=== PATIENT | female | born 1930 | race Caucasian/White ===

== ENCOUNTER → 2017-10-16 | Outpatient (CLI) | payer MEDICARE, BC ==
[~2017-10-16] MED LIST: CARV6.25 PO; CENTRUM SILVER1 EAC2 PO; CYAN1000 PO; DILT180 PO; DILT300 PO; DILTIAZEM ER300 MG PO; FURO40 PO; FURO80 PO; Hair, Skin & N1 EACH; LOW DOSE ASPIRI81 MG; Micro-K10 MEQ PO; POTCHL10ER PO; SODCHL.65S; SPIR25 PO; VITAMIN B122500 MCG PO; WARF3 PO
[2017-10-16 18:08] LABS: BASOPHILS ABSOLUTE AUTO 0.02 K/mm3 (0.00-0.23); BASOPHILS PERCENT AUTO 0 % (0-2); EOSINOPHILS ABSOLUTE AUTO 0.17 K/mm3 (0.00-0.68); EOSINOPHILS PERCENT AUTO 3 % (0-6); Hematocrit 35.2 % (33.0-51.0); Hemoglobin 12.1 g/dL (11.5-16.0); IMMATURE GRAN ABSOLUTE AUTO 0.02 K/mm3 (0.00-0.10); IMMATURE GRAN PERCENT AUTO 0 % (0-1); LYMPHOCYTES ABSOLUTE AUTO 0.92 K/mm3 (0.84-5.20); LYMPHOCYTES PERCENT AUTO 15 % (21-46); MONOCYTES ABSOLUTE AUTO 0.39 K/mm3 (0.16-1.47); MONOCYTES PERCENT AUTO 7 % (4-13); Mean Corpuscular HGB 34.3 pg (26.0-34.0); Mean Corpuscular HGB Conc 34.4 g/dL (31.5-36.5); Mean Corpuscular Volume 100 fL (80-100); Mean Platelet Volume 11.2 fL (9.1-12.4); NEUTROPHILS PERCENT AUTO 75 % (41-73); Platelet Count 219 K/mm3 (150-400); RDW Standard Deviation 52.6 fL (35.1-46.3); Red Blood Cell Count 3.53 M/mm3 (3.80-5.20); White Blood Cell Count 6.02 K/mm3 (4.00-11.30)
[2017-10-16 19:20] LABS: Albumin, Blood 3.5 g/dL (3.4-5.0); Albumin/Globulin Ratio 0.9 (0.8-1.8); Bilirubin, Total 0.7 mg/dL (0.1-1.0); Bun/Creatinine Ratio 20.9 (12.0-20.0); Calcium, Blood 9.3 mg/dL (8.5-10.1); Creatinine, Blood 1.48 mg/dL (0.40-1.00); Globulin, Blood 3.7 g/dL (2.2-4.0); Potassium, Blood 3.8 mmol/L (3.5-5.5); Total Protein, Blood 7.2 g/dL (6.4-8.2)
[2017-10-16 19:27] LABS: Thyroid Stimulating Hormone 2.69 uIU/mL (0.360-4.800)
== END | disposition home or self-care (01) ==
LOC: LAB 15:24
PROVIDERS: Nurse Practitioner Adult Health
DX: R19.7 Diarrhea, unspecified (principal)
CPT/HCPCS: 80053; 82150; 84443; 85025

== ENCOUNTER → 2017-10-18 | Outpatient (CLI) | payer MEDICARE, BC | END | disposition home or self-care (01) | LOC: LAB UCHC 16:00 | DX: R19.7 Diarrhea, unspecified (principal) | CPT/HCPCS: 87493 ==

== ENCOUNTER → 2017-10-18 | Outpatient (CLI) | payer MEDICARE, BC | END | disposition home or self-care (01) | LOC: LAB 15:00 | DX: R19.7 Diarrhea, unspecified (principal) | CPT/HCPCS: 87177; 87209 ==

== ENCOUNTER → 2018-12-04 | Outpatient (CLI) | payer MEDICARE, BC | END | disposition home or self-care (01) | LOC: PLD 08:24 → LAB SHORT 08:24 | DX: D04.61 Carcinoma in situ of skin of right upper limb, including shoulder (principal); D48.5 Neoplasm of uncertain behavior of skin | CPT/HCPCS: 88305 ==

== ENCOUNTER 2019-02-21 10:14 | Day surgery (SDC) | payer MEDICARE, BC ==
[~2019-02-21] VITALS: Ht 157.5 cm; Wt 45.0 kg
[~2019-02-21 10:14] MED LIST changes: +ACET325 PO; +LOSA25 PO
[2019-02-21 11:35] LABS: International Normalized Ratio 1.02; Prothrombin Time Results 10.8 Sec (9.7-11.5)
[2019-02-21 11:53] LABS: Bun/Creatinine Ratio 26.2 (12.0-20.0); Calcium, Blood 9.2 mg/dL (8.5-10.1); Creatinine, Blood 2.1 mg/dL (0.40-1.00); Potassium, Blood 4.2 mmol/L (3.5-5.5)
[2019-02-21 12:09] LABS: BASOPHILS ABSOLUTE AUTO 0.04 K/mm3 (0.00-0.23); BASOPHILS PERCENT AUTO 1 % (0-2); EOSINOPHILS ABSOLUTE AUTO 0.17 K/mm3 (0.00-0.68); EOSINOPHILS PERCENT AUTO 3 % (0-6); Hematocrit 32.6 % (33.0-51.0); Hemoglobin 11.1 g/dL (11.5-16.0); IMMATURE GRAN ABSOLUTE AUTO 0.02 K/mm3 (0.00-0.10); IMMATURE GRAN PERCENT AUTO 0 % (0-1); LYMPHOCYTES ABSOLUTE AUTO 0.61 K/mm3 (0.84-5.20); LYMPHOCYTES PERCENT AUTO 9 % (21-46); MONOCYTES ABSOLUTE AUTO 0.52 K/mm3 (0.16-1.47); MONOCYTES PERCENT AUTO 8 % (4-13); Mean Corpuscular HGB 33.5 pg (26.0-34.0); Mean Corpuscular Volume 99 fL (80-100); Mean Platelet Volume 10.6 fL (9.1-12.4); NEUTROPHILS ABSOLUTE AUTO 5.57 K/mm3 (1.96-9.15); NEUTROPHILS PERCENT AUTO 80 % (41-73); Platelet Count 210 K/mm3 (150-400); RDW Coefficient Variation 13.5 % (11.7-14.2); RDW Standard Deviation 47.7 fL (35.1-46.3); Red Blood Cell Count 3.31 M/mm3 (3.80-5.20); White Blood Cell Count 6.93 K/mm3 (4.00-11.30)
--- NOTE | 2019-02-21 16:52 | NUR ---
B/P / MD NOTIFIED. HYDRALIZINE 10MG IVP GIVEN PER DR GALE.
--- NOTE | 2019-02-21 18:03 | NUR ---
PT ABLE TO STAND AT BEDSIDE. -BLEEDING OR SWELLING L GROIN AREA.
--- NOTE | 2019-02-21 18:17 | NUR ---
PT AND CAREGIVER VERBALIZED UNDERSTANDING OF WRITTEN AND VERBAL D/C INST. IV REMOVED. -BLEEDING OR SWELLING L GROIN.
--- NOTE | 2019-02-21 18:44 | NUR ---
PT LEFT HRT CENTER VIA W/C.
--- NOTE | 2019-02-22 09:10 | NUR ---
AT 1450 ON 02/21/19 THIS RN CALLED PT'S CAREGIVER TO ARRANGE FOR CAREGIVER TO SPEND THE NIGHT WITH PT POST PVI. CAREGIVER'S NAME IS FLORY, AND SHE CONFIRMED SHE WOULD SPEND THE NIGHT WITH THE PT UPON DISCHARGE. FLORY WAS ADDITIONALLY, CALLED DURING CASE TO EVALUATE IF SHE COULD SPEND THE NIGHT WITH PT AND SHE CONFIRMED SHE COULD.
== END 2019-02-21 18:45 | disposition home or self-care (01) ==
LOC: MHTC 10:14 → PCU 16:38 → MHTC 18:45
PROVIDERS: Radiology Diagnostic Radiology
DX: I77.9 Disorder of arteries and arterioles, unspecified (principal); I11.0 Hypertensive heart disease with heart failure; I50.9 Heart failure, unspecified; D64.9 Anemia, unspecified; Z88.1 Allergy status to other antibiotic agents; Z88.8 Allergy status to other drugs, medicaments and biological substances; Z79.899 Other long term (current) drug therapy; Z79.82 Long term (current) use of aspirin
CPT/HCPCS: 36415; 80048; 85025; 85610; 99152; 99153; C1714; C1725; C1760; C1769; C1884; C1887; C1894; C2623; J0360; J1644; J2250; J3010; J7030; Q9967

== ENCOUNTER → 2019-02-23 | Outpatient (CLI) | payer MEDICARE, BC ==
[2019-02-23 17:29] LABS: Creatinine, Urine Random 75.3 mg/dL (27.00-270.00)
== END | disposition home or self-care (01) ==
LOC: LAB SHORT 16:41 → LAB 16:41
PROVIDERS: Internal Medicine
DX: N18.4 Chronic kidney disease, stage 4 (severe) (principal)
CPT/HCPCS: 82570; 84156

== ENCOUNTER 2019-04-12 09:54 | Inpatient (IN) | payer MEDICARE, BC ==
[~2019-04-12] VITALS: Ht 149.9 cm; Wt 43.3 kg
[~2019-04-12 09:54] MED LIST changes: -LOW DOSE ASPIRI81 MG; +LOW DOSE ASPIRI81 MG PO; +TRAM50 PO
[2019-04-12] MEDS ORDERED: B Complex #11 EACH PO (10:11)
[2019-04-12] MEDS ORDERED: TRAM50 PO (10:45)
[2019-04-12] MEDS ORDERED: FURO40 PO (10:45)
[2019-04-12 10:47] LABS: Albumin, Blood 3.2 g/dL (3.4-5.0); Albumin/Globulin Ratio 0.9 (0.8-1.8); Bilirubin, Total 0.7 mg/dL (0.1-1.0); Calcium, Blood 8.6 mg/dL (8.5-10.1); Creatinine, Blood 3.15 mg/dL (0.40-1.00); Globulin, Blood 3.5 g/dL (2.2-4.0); Potassium, Blood 4.4 mmol/L (3.5-5.5); Total Protein, Blood 6.7 g/dL (6.4-8.2)
[2019-04-12 11:10] LABS: BASOPHILS ABSOLUTE AUTO 0.03 K/mm3 (0.00-0.23); BASOPHILS PERCENT AUTO 0 % (0-2); EOSINOPHILS ABSOLUTE AUTO 0.21 K/mm3 (0.00-0.68); EOSINOPHILS PERCENT AUTO 2 % (0-6); Hematocrit 25.1 % (33.0-51.0); IMMATURE GRAN ABSOLUTE AUTO 0.06 K/mm3 (0.00-0.10); IMMATURE GRAN PERCENT AUTO 1 % (0-1); LYMPHOCYTES ABSOLUTE AUTO 0.56 K/mm3 (0.84-5.20); LYMPHOCYTES PERCENT AUTO 5 % (21-46); MONOCYTES ABSOLUTE AUTO 0.83 K/mm3 (0.16-1.47); MONOCYTES PERCENT AUTO 7 % (4-13); Mean Corpuscular HGB 36.7 pg (26.0-34.0); Mean Corpuscular HGB Conc 35.9 g/dL (31.5-36.5); Mean Corpuscular Volume 102 fL (80-100); Mean Platelet Volume 10.9 fL (9.1-12.4); NEUTROPHILS ABSOLUTE AUTO 9.64 K/mm3 (1.96-9.15); NEUTROPHILS PERCENT AUTO 85 % (41-73); Platelet Count 189 K/mm3 (150-400); RDW Coefficient Variation 16.2 % (11.7-14.2); RDW Standard Deviation 52.4 fL (35.1-46.3); Red Blood Cell Count 2.45 M/mm3 (3.80-5.20); White Blood Cell Count 11.33 K/mm3 (4.00-11.30)
[2019-04-12 11:15] LABS: International Normalized Ratio 1.01; Prothrombin Time Results 10.7 Sec (9.7-11.5)
--- NOTE | 2019-04-12 13:30 | NUR ---
PT ARRIVED TO PCU 14 VIA GURNEY FROM ED. PT IS A/OX3, PLEASANT AND COOPERATIVE WITH CARE, FOLLOWS COMMANDS WELL, DENIES PAIN, LUNGS ARE CLEAR T/O, DIM IN BASES, RESP EVEN AND UNLABORED, NO COUGH NOTED, HRR, TELE IN PLACE RUNNING SR PER MONITOR, SEE STRIP, NO EDEMA NOTED, PPP FOUND VIA DOPPLER TO RIGHT FOOT, UNABLE TO FIND LEFT, TRACE EDEMA NOTED, IV SITE IS CLEAR AND PATENT, BTX4, ABD FLAT SOFT NONTENDER, VOIDS WITHOUT DIFF, SKIN HAS AN ANGIO SITE TO RIGHT INGUINAL AREA WITH HARD BRUISING NOTED ALL AROUND SITE, DOWN INTO GROIN. DRESSING IN PLACE TO ANGIO SITE, ABHAY KIRK, CALL LIGHT IN REACH. ORIENTED TO ROOM LAYOUT CALL SYSTEM.
--- NOTE | 2019-04-12 17:57 | NUR ---
BLADDER SCAN POST VOID IS 105
--- NOTE | 2019-04-12 18:04 | NUR ---
PT ABLE TO STAND AND TRANSFER TO BSC WITH ONE PERSON ASSIST, VOIDED [address] JAVIER WAS CONSULTED AND NEW ORDERES WERE PLACED. WILL KEEP NPO AFTER MIDNIGHT FOR AM RENAL U/S. NO FURTHER CHANGES, CALL LIGHT IN REACH.
[2019-04-12 18:23] LABS: Hemoglobin 8.5 g/dL (11.5-16.0)
[2019-04-12 18:30] LABS: Hematocrit 22.4 % (33.0-51.0)
--- NOTE | 2019-04-12 20:00 | NUR ---
ASSUMED CARE PT RESTING IN ROOM COMFORTABLY AT THIS TIME. PER DAY SHIFT PT HAS HAD NO ACUTE CHANGES IN STATUS. HEMATOMA INSPECTED ON PT R GROIN/ABD. SOME DISCOLORATION NOTED TO AREA, PURPLE COLOR STARTING TO APPEAR ON SKIN. PT SLIGHTLY TENDER TO PALP. DENIES ANY OTHER PAIN W/ MOVEMENT. PT REPORTS HAVING "FULL BELLY LIKE I NEED TO HAVE A BOWEL MOVEMENT". PT HAS BEEN A 1 PERS ASSIST TO BSC, PT IS VERY WEAK ON OWN FEET. RESP EVEN UNLABORED ON RA W/ SATS >92% ON RA. DENIES CP, OR SOB. CALL LIGHT IS IN REACH.
[2019-04-13 05:15] LABS: Albumin, Blood 2.9 g/dL (3.4-5.0); Anion Gap 10 mmol/L (6-16); Blood Urea Nitrogen 58 mg/dL (8-24); Bun/Creatinine Ratio 19.5 (12.0-20.0); CO2, Blood 21 mmol/L (21-32); CPK Creatine Kinase 60 U/L (26-193); Chloride, Blood 101 mmol/L (98-108); Creatinine, Blood 2.98 mg/dL (0.40-1.00); Glomerular Filtration Rate 16 (60-); Glucose, Blood 100 mg/dL (70-99); Magnesium, Blood 2.2 mg/dL (1.6-2.4); Phosphorus, Blood 4.6 mg/dL (2.5-4.9); Potassium, Blood 4.3 mmol/L (3.5-5.5); Sodium, Blood 132 mmol/L (136-145); Uric Acid, Blood 9.7 mg/dL (2.6-6.0)
[2019-04-13 05:20] LABS: BASOPHILS ABSOLUTE AUTO 0.03 K/mm3 (0.00-0.23); BASOPHILS PERCENT AUTO 0 % (0-2); EOSINOPHILS ABSOLUTE AUTO 0.03 K/mm3 (0.00-0.68); EOSINOPHILS PERCENT AUTO 0 % (0-6); Hematocrit 23.6 % (33.0-51.0); IMMATURE GRAN ABSOLUTE AUTO 0.08 K/mm3 (0.00-0.10); IMMATURE GRAN PERCENT AUTO 1 % (0-1); LYMPHOCYTES ABSOLUTE AUTO 0.66 K/mm3 (0.84-5.20); LYMPHOCYTES PERCENT AUTO 5 % (21-46); MONOCYTES ABSOLUTE AUTO 1.24 K/mm3 (0.16-1.47); MONOCYTES PERCENT AUTO 9 % (4-13); Mean Corpuscular HGB Conc 33.9 g/dL (31.5-36.5); Mean Corpuscular Volume 100 fL (80-100); Mean Platelet Volume 10.9 fL (9.1-12.4); NEUTROPHILS ABSOLUTE AUTO 11.22 K/mm3 (1.96-9.15); NEUTROPHILS PERCENT AUTO 85 % (41-73); Platelet Count 199 K/mm3 (150-400); RDW Coefficient Variation 15.1 % (11.7-14.2); RDW Standard Deviation 52.1 fL (35.1-46.3); Red Blood Cell Count 2.35 M/mm3 (3.80-5.20); White Blood Cell Count 13.26 K/mm3 (4.00-11.30)
--- NOTE | 2019-04-13 06:34 | NUR ---
SHIFT SUMMARY PT SLEEPING IN ROOM COMFORTABLY AT THIS TIME. PT HAD NO ACUTE CHANGES IN STATUS T/O NIGHT. PT SLEPT WELL AND GOT UP TO BSC ONCE T/O NIGHT W/ 2 PERSON ASSIST. RESP EVEN UNLABORED ON RA W/ SATS >92%. PT HAS NS INFUSING IN PIV AT THIS TIME AT 75ML/HR. BRUISING TO R GROIN/ABD STARRTING TOP TURN PURPLE IN COLOR. PT REPORTS PAIN ONLY W/ MOVEMENT AND PALP. DENIED OTHER NEEDS T/O NIGHT. CALL LIGHT IN REACH. PT CALLS APPROPRIATEY
--- NOTE | 2019-04-13 07:15 | NUR ---
RECVD REPORT FROM PREVIOUS SHIFT KAYCEE OTERO. PT SLEEPING IN BED, CALL LIGHT WITHIN REACH, BED RAILS UP X 2, BED IN LOWEST POSITION.
--- NOTE | 2019-04-13 07:53 | NUR ---
PT BECAME SOB WITH ROLLING ONTO/OFF THE BED PAIN, SPO2 AT LOW 83% LUNGS DIMINISHED BUT ONLY SLIGHTLY COARSE. RT IN WITH PT CURRENTLY.
--- NOTE | 2019-04-13 07:56 | NUR ---
DR ALFONSO TO ROUND ON PT
--- NOTE | 2019-04-13 08:00 | NUR ---
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 dr luis notified and discussed with pt treatment plan. pt agrees to completed renal ultrasound, possibly will agree to receive hoyt catheter if necessary
[2019-04-13 12:12] LABS: Hematocrit 21.2 % (33.0-51.0); Hemoglobin 7.8 g/dL (11.5-16.0)
--- NOTE | 2019-04-13 18:19 | NUR ---
shift summary: vss, no acute changes. pt remainted a/0 x 4, pleasant/cooperative. pt reports she feels "weak as a kitten", one assist moderate to commode. 24 hr urine in progress. pt tolerated PO intake, no n/v. pt denies pain, states she is sore where the hematoma is. bruising developing r flank, r groin, r inner thigh. unable to complete renal ultrasound study, see imaging note. provider notified and received orders for PRN bladder scans.
--- NOTE | 2019-04-13 20:00 | NUR ---
ASSUMED CARE PT SLEEPING IN ROOM COMFORTABLY. REPORT TAKERN FROM DAY SHIFT RN, NO ACUTE CHANGES IN STATUS T/O DAY. PT HGB CONTINUES TO DROP SLIGHTLY. HGB REDRAW OCCURING SOON. WILL CALL PROVIDER WITH RESULTS IF LEVEL CONTINUES TO DROP. RESP EVEN UNLABORED ON RA W/ SATS >95%. DENIES OTHER NEEDS AT THIS TIME. PT LETHARGIC. CALL LIGHT IN REACH.
[2019-04-13 20:15] LABS: Hematocrit 19.2 % (33.0-51.0); Hemoglobin 7.1 g/dL (11.5-16.0)
--- NOTE | 2019-04-13 21:40 | NUR ---
PROVIDER CALLED D/T PT LOW HGB LEVEL PROVIDER WAS CALLED AND UPDATED ON PT CONDITION. PROVIDER ORDERED 2 UNITS PRBC'S AT THIS TIME FOR HGB OF 7.1, AND CONTINUED DOWNWARD TREND. PT STATUS REMAINS STABLE AT THIS TIME, NO INCREASED ABD DISTENTION, BRUISING HAS NOT CHANGED EXPECT TO DARKEN IN COLOR. PT HAS NO BLACK STOOL. BLOOD CONSENT SIGNED AT THIS TIME AND PT EDUCATED ABOUT PROCEDURE. WILL MONITOR.
--- NOTE | 2019-04-14 06:12 | NUR ---
SHIFT SUMMARY PT SLEEPING IN ROOM COMFORTABLY AT THIS TIME. PT RECEIVED 2 UNITS OF PRBC'S T/O NIGHT TO RAISE HGB LEVEL FROM 7.1. PT TOLERATED WELL. PT WAS EDUCATED ABOUT TRANSFUSION, AND ASKED SEVERAL QUESTIONS. PT DID BECOME ANXIOUS ABOUT TRANSFUSION, BUT HAD NO REACTIONS, AND LS REMAINED CLEAR T/O. PT REPORT THERE WAS NO PAIN TO IV SITE "IT JUST MAKES ME NERVOUS". PT AGAIN EDUCATED ABOUT LOW HGB LEVEL AND NEED TO RAISE LEVEL, AND THAT THE TRANSFUSION IS MONTIORED VERY CLOSELY. RESP EVEN UNLBAORED ON RA W/ SATS >95%. DENIES PAIN. BRUISING TO R GROIN DARKENING IN COLOR. BRUISE WRAPS AROUND TO FLANK, AND IS TENDER TO PALP. NS INFUSING IN PIV AT 75ML/HR. CALL LIGHT IN REACH.
[2019-04-14 06:29] LABS: Albumin, Blood 2.8 g/dL (3.4-5.0); Anion Gap 11 mmol/L (6-16); Blood Urea Nitrogen 49 mg/dL (8-24); Bun/Creatinine Ratio 20.7 (12.0-20.0); CO2, Blood 20 mmol/L (21-32); Calcium, Blood 8.1 mg/dL (8.5-10.1); Chloride, Blood 104 mmol/L (98-108); Creatinine, Blood 2.37 mg/dL (0.40-1.00); Glomerular Filtration Rate 20 (60-); Glucose, Blood 100 mg/dL (70-99); Phosphorus, Blood 3.5 mg/dL (2.5-4.9); Potassium, Blood 4.2 mmol/L (3.5-5.5); Sodium, Blood 135 mmol/L (136-145)
[2019-04-14 06:39] LABS: BASOPHILS ABSOLUTE AUTO 0.03 K/mm3 (0.00-0.23); BASOPHILS PERCENT AUTO 0 % (0-2); EOSINOPHILS ABSOLUTE AUTO 0.06 K/mm3 (0.00-0.68); EOSINOPHILS PERCENT AUTO 1 % (0-6); Hematocrit 28.9 % (33.0-51.0); Hemoglobin 10.2 g/dL (11.5-16.0); IMMATURE GRAN PERCENT AUTO 1 % (0-1); LYMPHOCYTES ABSOLUTE AUTO 0.67 K/mm3 (0.84-5.20); LYMPHOCYTES PERCENT AUTO 6 % (21-46); MONOCYTES ABSOLUTE AUTO 0.87 K/mm3 (0.16-1.47); MONOCYTES PERCENT AUTO 8 % (4-13); Mean Corpuscular HGB 34.7 pg (26.0-34.0); Mean Corpuscular Volume 98 fL (80-100); Mean Platelet Volume 10.3 fL (9.1-12.4); NEUTROPHILS ABSOLUTE AUTO 9.36 K/mm3 (1.96-9.15); NEUTROPHILS PERCENT AUTO 85 % (41-73); Platelet Count 141 K/mm3 (150-400); RDW Coefficient Variation 14.9 % (11.7-14.2); RDW Standard Deviation 51.4 fL (35.1-46.3); Red Blood Cell Count 2.94 M/mm3 (3.80-5.20); White Blood Cell Count 11.09 K/mm3 (4.00-11.30)
[2019-04-14 06:43] LABS: Mean Corpuscular HGB Conc 35.3 g/dL (31.5-36.5)
--- NOTE | 2019-04-14 19:44 | NUR ---
SUMMARY- PT A/O- AMBULATES TO [facility] [place] [facility], SLIGHT WEAKNESS AND UNSTEADY GAIT. R GROIN HEMATOMA, MARKED WITH SHARPIE, TENDER AT SITE, NO ACTIVE OOZING. HEMATOMA DID NOT GROW OUTSIDE MARKED LINES. PT TOLERATING FOOD AND FLUIDS. VSS. REPORT GIVEN TO CRISTINA BENOIT.
--- NOTE | 2019-04-14 20:00 | NUR ---
ASSUMED CARE PT RESTING COMFORTABLY IN ROOM. PER DAY SHIFT NO ACUTE CHANGES IN STATUS. PT WAS ABLE TO HAVE A BED BATH TODAY AND PT REPORTS "FEELING MUCH BETTER". RESP EVEN UNLBAORED ON RA W/ SATS >92%. DENIES PAIN, UNLESS GROIN SITE IS PALPATED. PT EDUCATED ABOUT HIGH BLOOD PRESSURE. PT REFUSING PRN MEDS FOR LOWERING BP, PT REPORTS "THATS NOT TOO HIGH FOR ME. I'LL TAKE A NAP AND WE CAN RECHECK AT THE NEXT SET". PT EDUCATED AB OUT RISKS OF HIGH BP. PT CONTINUES TO REFUSE MEDICATION UNTIL NEXT VITAL SIGN CHECK AT MIDNIGHT. PT APPEARS TO BE COMFORTABLE AND FREE OF PAIN AT THIS TIME. CALL LIGHT IS IN REACH.
--- NOTE | 2019-04-14 23:41 | NUR ---
HIGH BP MEDICATED PT VITAL SIGNS RECHECKED AT THIS TIME. SBP AT 202, PT CONSENTED TO HYDRALAZINE AT THIS TIME TO REDUCED BP. MED GIVEN WILL MONITOR.
--- NOTE | 2019-04-15 06:50 | NUR ---
SHIFT SUMMARY PT RESTING IN ROOM COMFORTABLY AT THIS TIME. PT HAD NO ACUTE CHANGES IN STATUS T/O NIGHT. PT DID HAVE AN EPISODE OF IRRITABILTY WITH STAFF. PT WAS FRUSTRATED WITH BEING WOKEN UP FOR VITAL SIGNS DURING THE NIGHT. PT STATED "IT'S JUST AWFUL THAT YOU WAKE ME UP! IT'S LIEK I'M IN SHELTER! LEAVE ME ALONE!". ATTEMPTED EDUCATION ABOUT WHY PT WAS BEING WOKEN UP FOR VITAL SIGNS, D/T PT HAVING HIGH BLOOD PRESSURE DURING THE NIGHT. PT CONTINUES TO YELL AT THIS RN "LEAVE ME ALONE TO SLEEP! MY BLOOD PRESSURE IS ALWAYS THAT HIGH!". PT ALLOWED TO SLEEP W/O INTERU[TION FOR SEVERAL HOURS. THIS RN ROUNDED ON PT W/O WAKING TO ENSURE SAFETY AND COMFORT. RESP EVEN UNLABORED ON RA W/ SATS >92%. PT APPEARS TO HAVE SOME CONFUSION THIS AM. P[T ASKING FOR RN WHO "KEPT HER PRISONR LAST NIGHT", PT REMINDED THAT THIS RN WAS PRIMARY RN FOR PT T/O NIGHT AND PREVIOUS 2 NIGHTS. PT CONTINUES TO ASK ABOUT "THE OTHER NURSE". PT KNOWS EVENT, PLACE, TIME, AND PERSON. DENIES OTHER NEEDS. PT GIVEN DECAF COFFEE THIS AM, SITTING UP IN BED AWAITING CONSULT FROM DR RODRIGES. CALL LIGHT IN REACH.
--- NOTE | 2019-04-15 08:30 | NUR ---
ASSUMED CARE PT ALERT AND OREINTED. BP ELEVATED. DR. PENA IN THE ROOM AND NOTIFIED. PT MEDICATED PER EMAR FOR BP. PT DENIES ANY PAIN. HEMATOMA STILL REMAINS INSIDE THE MARKED BORDER. WILL CONTINUE TO MONITOR CLOSELY.
[2019-04-15 09:44] LABS: Anion Gap 12 mmol/L (6-16); Blood Urea Nitrogen 47 mg/dL (8-24); Bun/Creatinine Ratio 27.5 (12.0-20.0); CO2, Blood 17 mmol/L (21-32); Calcium, Blood 8.5 mg/dL (8.5-10.1); Chloride, Blood 106 mmol/L (98-108); Creatinine, Blood 1.71 mg/dL (0.40-1.00); Glomerular Filtration Rate 30 (60-); Glucose, Blood 134 mg/dL (70-99); Phosphorus, Blood 2.6 mg/dL (2.5-4.9); Potassium, Blood 4.4 mmol/L (3.5-5.5); Sodium, Blood 135 mmol/L (136-145)
[2019-04-15 09:45] LABS: BASOPHILS ABSOLUTE AUTO 0.03 K/mm3 (0.00-0.23); BASOPHILS PERCENT AUTO 0 % (0-2); EOSINOPHILS ABSOLUTE AUTO 0.03 K/mm3 (0.00-0.68); EOSINOPHILS PERCENT AUTO 0 % (0-6); IMMATURE GRAN PERCENT AUTO 1 % (0-1); LYMPHOCYTES PERCENT AUTO 5 % (21-46); MONOCYTES ABSOLUTE AUTO 0.83 K/mm3 (0.16-1.47); MONOCYTES PERCENT AUTO 6 % (4-13); Mean Corpuscular HGB 35.9 pg (26.0-34.0); Mean Corpuscular HGB Conc 36.7 g/dL (31.5-36.5); Mean Corpuscular Volume 98 fL (80-100); Mean Platelet Volume 10.2 fL (9.1-12.4); NEUTROPHILS ABSOLUTE AUTO 11.73 K/mm3 (1.96-9.15); NEUTROPHILS PERCENT AUTO 88 % (41-73); Platelet Count 206 K/mm3 (150-400); RDW Coefficient Variation 16.2 % (11.7-14.2); RDW Standard Deviation 52.4 fL (35.1-46.3); Red Blood Cell Count 3.06 M/mm3 (3.80-5.20); White Blood Cell Count 13.32 K/mm3 (4.00-11.30)
--- NOTE | 2019-04-15 12:43 | NUR ---
UPDATE BP STILL ELEVATED SEE VITAL SIGNS. PT COMPLAINS THAT BREATHING IS MORE LABORED. RESPIRATIONS ARE SHALLOW AND RAPID. RR 20-26. O2 SATS REMAIN ABOVE 90% ON RA. DR. PENA CALLED AND UPDATED. AWAITING NEW ORDERS. WILL CONTINUE TO MONITOR CLOSELY.
--- NOTE | 2019-04-15 15:23 | NUR ---
BP STILL ELEVATED AFTER ADMINISTRATION OF HYDRALIZINE AND LASIX. DR. PENA CALLED AND NOTIFIED. NEW ORDERS TO RECHECK BP IN 10 MINUTES.
--- NOTE | 2019-04-15 16:00 | NUR ---
BP STILL ELEVATED. ONE TIME DOSE OF HYDRALAZINE GIVEN. WILL RECHECK BP
--- NOTE | 2019-04-15 18:48 | NUR ---
SHIFT SUMMARY PT ALERT AND ORIENTED. O2 SATS REMAIN ABOVE 90% ON RA. PT DENIES ANY PAIN. HEMATOMA UNCHANGED THIS SHIFT. BP HAS IMPROVED THIS EVENING SEE VS. PT HAS MINIMAL URINE OUTPUT THIS SHIFT AND 1 INCONTINENT VOID. PT REPOSITIONING SELF IN BED WITH ENCOURAGEMENT. WILL CONTINUE TO MONITOR AND REPORT TO ONCOMING RN. CALL LIGHT IN REACH.
[2019-04-16 04:25] LABS: Albumin, Blood 2.8 g/dL (3.4-5.0); Anion Gap 9 mmol/L (6-16); Blood Urea Nitrogen 47 mg/dL (8-24); Bun/Creatinine Ratio 23.6 (12.0-20.0); CO2, Blood 21 mmol/L (21-32); Calcium, Blood 8.5 mg/dL (8.5-10.1); Chloride, Blood 106 mmol/L (98-108); Creatinine, Blood 1.99 mg/dL (0.40-1.00); Glomerular Filtration Rate 25 (60-); Glucose, Blood 104 mg/dL (70-99); Phosphorus, Blood 3.2 mg/dL (2.5-4.9); Potassium, Blood 4.1 mmol/L (3.5-5.5); Sodium, Blood 136 mmol/L (136-145)
[2019-04-16 04:32] LABS: BASOPHILS ABSOLUTE AUTO 0.02 K/mm3 (0.00-0.23); BASOPHILS PERCENT AUTO 0 % (0-2); EOSINOPHILS ABSOLUTE AUTO 0.09 K/mm3 (0.00-0.68); EOSINOPHILS PERCENT AUTO 1 % (0-6); Hematocrit 30.2 % (33.0-51.0); Hemoglobin 10.5 g/dL (11.5-16.0); IMMATURE GRAN ABSOLUTE AUTO 0.06 K/mm3 (0.00-0.10); IMMATURE GRAN PERCENT AUTO 1 % (0-1); LYMPHOCYTES ABSOLUTE AUTO 0.58 K/mm3 (0.84-5.20); LYMPHOCYTES PERCENT AUTO 6 % (21-46); MONOCYTES ABSOLUTE AUTO 0.97 K/mm3 (0.16-1.47); MONOCYTES PERCENT AUTO 9 % (4-13); Mean Platelet Volume 10.2 fL (9.1-12.4); NEUTROPHILS ABSOLUTE AUTO 8.92 K/mm3 (1.96-9.15); NEUTROPHILS PERCENT AUTO 84 % (41-73); Platelet Count 189 K/mm3 (150-400); RDW Coefficient Variation 17.2 % (11.7-14.2); RDW Standard Deviation 54.9 fL (35.1-46.3); White Blood Cell Count 10.64 K/mm3 (4.00-11.30)
[2019-04-16 04:34] LABS: Mean Corpuscular HGB Conc 34.8 g/dL (31.5-36.5); Mean Corpuscular Volume 101 fL (80-100)
--- NOTE | 2019-04-16 05:58 | NUR ---
SHIFT SUMMARY PT A&O X4. PT STATES "I FEEL MUCH BETTER THIS MORNING." R GROIN HEMATOMA UNCHANGED FROM CARE ASSUMPTION. PT STATES SITE TO BE "TENDER". PT MEDICATED FOR R GROIN PAIN PER PT REQUEST/EMAR. BP ELEVATED THIS SHIFT, MEDICATED PER EMAR. OTHERWISE VSS. MONITOR SHOWS AFIB, HR 80-110. EPISODES OF URINE & BOWEL INCONTINENCE THIS SHIFT, W/ PT CONTINENT AGAIN THIS AM. PT WEARING ATTENDS. WILL CONTINUE TO MONITOR AND PROVIDE CARE UNTIL REPORT OFF TO DAY SHIFT RN.
--- NOTE | 2019-04-16 15:47 | NUR ---
UPDATED DR ALFONSO OF BP T/O SHIFT, NEW ORDERS FOR PT/OT. WILL CONTINUE TO MONITOR.
--- NOTE | 2019-04-16 19:54 | NUR ---
SHIFT SUMMARY PT A&Ox4, FORGETFUL AT TIMES AND LOWER EL[place]. PT UP IN CHAIR FOR MEALS. PT 1 PERSON ASSIST TO BSC. ORDERS FOR PT/OT. PT DENIES PAIN AND NAUSEA DURING SHIFT. PT SOB WITH EXERTION, >92% ON RA, LS DIM IN BASES. RIGHT GROIN HEMATOMA UNCHANGES FROM THIS AM. BLE PULSES FOUND WITH DOPPLER AND SITES MARKED. ELEVATED BP NOTED, MEDICATED PER EMAR. OTHER VSS. NO OTHER ACUTE CHANGES NOTED DURING SHIFT. WILL CONTINUE TO MONITOR UNTIL REPORT GIVEN TO ONCOMING RN.
--- NOTE | 2019-04-17 01:01 | NUR ---
ASSUMED PT CARE AT 1915 PT ALERT AND ORIENTED; ABLE TO COMMUNICATE NEEDS. [place]; HAS A HEARING AID FOR RIGHT EAR, BUT IS STILL [place]. BRUISING CONTINUES TO [place] AREA AND AROUND RIGHT FLANK. INCISION TO RLQ IS ATTEMPTING TO SCAB OVER WITH MINIMAL SEROUS DRAINAGE; TENDER TO THE TOUCH. TIBIAL AND PEDAL PULSES TO LLE ARE FAINT, BUT PALPABLE. LLE IS COOL TO THE TOUCH WITH MODERATE PITTING EDEMA NOTED. BILATERAL TOES ARE RED TO THE TOUCH WITH GOOD CAPILLARY REFILL. 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 PT REMAINS IN AFIB WITH HR 90-100'S; CURRENTLY NOT ON ANY ANTICOAGULATION SECONDARY TO HEMATOMA S/P REVASCULARIZATION TO LLE. PT DECLINES THE NEED FOR REPOSITIONING; STATES SHE DOESN'T WANT ANY PILLOWS UNDER HER BACK, HIPS, AND KNEES. STATES SHE WILL UTILIZE HER CALL LIGHT FOR REPOSITIONING. SHE IS A ONE PERSON ASSIST TO THE BATHROOM. MEDICATED WITH ULTRAM X1 D/T BACK PAIN. BLOOD PRESSURES REMAIN ON THE HIGHER END; MEDICATED WITH HYDRALAZINE X1 WITH SBP DECREASING FROM 190 TO 170. WILL REPORT OFF TO DAY RN TO COMMUNICATE WITH PHYSICIAN THAT PT TAKES COZAAR AND SPIRONOLACTONE AT HOME ON TOP OF HER COREG AND LASIX. CALL LIGHT LEFT WITHIN REACH. NO SIGNIFICANT CHANGES TO REPORT AT THIS TIME.
[2019-04-17 03:51] LABS: Albumin, Blood 2.8 g/dL (3.4-5.0); Anion Gap 10 mmol/L (6-16); Blood Urea Nitrogen 51 mg/dL (8-24); Bun/Creatinine Ratio 23.2 (12.0-20.0); CO2, Blood 21 mmol/L (21-32); Calcium, Blood 8.5 mg/dL (8.5-10.1); Chloride, Blood 103 mmol/L (98-108); Glomerular Filtration Rate 22 (60-); Glucose, Blood 94 mg/dL (70-99); Phosphorus, Blood 3.1 mg/dL (2.5-4.9); Potassium, Blood 3.8 mmol/L (3.5-5.5); Sodium, Blood 134 mmol/L (136-145)
--- NOTE | 2019-04-17 04:02 | NUR ---
END OF SHIFT SUMMARY NO SIGNIFICANT CHANGES TO REPORT THIS SHIFT. PT HAS REMAINED PLEASANT AND COOPERATIVE WITH CARE. C/O GENERALIZED SWELLING AND WEAKNESS. STATES SHE HOPES TO BE ABLE TO MAKE IT TO THE BATHROOM BY THE END OF HER STAY. SWELLING CONTINUES TO BILATERAL FEET/ANKLES AND HANDS. BRUISING CONTINUES TO PELVIC REGION AND TO RIGHT FLANK AREA. PERIPHERAL PULSES REMAIN PALPABLE; LLE COOLER TO THE TOUCH THAN RLE. SITE TO RLQ REMAINS WITH SCABBED APPEARANCE AND TENDERNESS. CALL LIGHT LEFT WITHIN REACH. PT ABLE TO MAKE HER NEEDS KNOWN.
[2019-04-17 04:12] LABS: BASOPHILS ABSOLUTE AUTO 0.02 K/mm3 (0.00-0.23); BASOPHILS PERCENT AUTO 0 % (0-2); EOSINOPHILS ABSOLUTE AUTO 0.24 K/mm3 (0.00-0.68); EOSINOPHILS PERCENT AUTO 2 % (0-6); Hematocrit 29.1 % (33.0-51.0); IMMATURE GRAN ABSOLUTE AUTO 0.04 K/mm3 (0.00-0.10); IMMATURE GRAN PERCENT AUTO 0 % (0-1); LYMPHOCYTES ABSOLUTE AUTO 0.68 K/mm3 (0.84-5.20); LYMPHOCYTES PERCENT AUTO 7 % (21-46); MONOCYTES ABSOLUTE AUTO 1.01 K/mm3 (0.16-1.47); MONOCYTES PERCENT AUTO 10 % (4-13); Mean Corpuscular HGB 34.5 pg (26.0-34.0); Mean Platelet Volume 9.9 fL (9.1-12.4); NEUTROPHILS ABSOLUTE AUTO 7.84 K/mm3 (1.96-9.15); NEUTROPHILS PERCENT AUTO 80 % (41-73); Platelet Count 211 K/mm3 (150-400); RDW Coefficient Variation 15.9 % (11.7-14.2); RDW Standard Deviation 54.1 fL (35.1-46.3); White Blood Cell Count 9.83 K/mm3 (4.00-11.30)
[2019-04-17 04:13] LABS: Mean Corpuscular HGB Conc 34.4 g/dL (31.5-36.5); Mean Corpuscular Volume 100 fL (80-100)
--- NOTE | 2019-04-17 07:08 | NUR ---
Bedside report received from KAYCEE Whitaker. The pt is awake. STates that she would like some prune juice with breakfast as she "has not had a bowel movement in 2 days." Noted no bowel care orders on the eMAR.
--- NOTE | 2019-04-17 08:08 | NUR ---
Gerson was assisted to sitting on the side of the bed, and then to the bathroom to void before sitting up in the chair for breakfast. She said that it felt good to be up on her feet. Used the front wheel walker well, but says she prefers her home walker which has frou wheels. Denies feeling "woozy" like she did yesterday when she first got up from bed. She is sitting up in the chair at this time, eating breakfast. Prune juice given per her request.
--- NOTE | 2019-04-17 08:32 | NUR ---
ASSUMED CARE OF PT AT 0700. PT UP IN CHAIR FOR BREAKFAST. PT A&Ox4. CALM AND COOPERATIVE WITH CARE. 1 PERSON ASSIST. PT ASKING FOR PRUNES, STATES SHE HAS NOT HAD BM IN TWO DAYS, PRUNES PROVIDED. PT DENIES PAIN, SOB AND NAUSEA. SPO2 >92% ON RA, RESP EVEN AND UNLABORED. RIGHT GROIN SIDE OPEN TO AIR, NO CHANGES TO BRUISING/HEMATOMA, TENDER ON PALPATION, BRUISING THROUGH GROIN TO LEFT SIDE. ELEVATED BP NOTED, MEDICATED WITH SCHEDULED COREG AND LAXIS. WILL CONTINUE TO MONITOR.
--- NOTE | 2019-04-17 15:06 | NUR ---
PT UP IN CHAIR, APPEARS TO BE SLEEPING. RESP EVEN AND UNLABORED AT 14. WILL CONTINUE TO MONITOR.
--- NOTE | 2019-04-17 17:32 | NUR ---
SHIFT SUMMARY PT A&Ox4. CALM AND COOPERATIVE WITH CARE. PT UP IN RECLINER FOR MAJORITY OF SHIFT. 1 PERSON ASSIST WITH FWW TO BATHROOM. PT REPORTS TENDERNESS IN RLQ AND RIGHT FLANK, DENIES NEEDS FOR PAIN MEDICATIONS. PT DENIES SOB AND NAUSEA T/O SHIFT. PT REPORT NEEDING TO HAVE A BM, ATE PRUNES AND PRUNE JUICE REQUESTING CH[employer] AND ADDITIONAL PRUNE JUICE FOR DINNER. ELEVATED BP NOTED, DR ALFONSO NOTIFIED THIS AM, NO NEW ORDERS. MEDICATED PER EMAR. OTHER VSS. NO OTHER ACUTE CHANGES NOTED DURING SHIFT. REPORT GIVEN TO KAYCEE QUEVEDO ON MEDICAL FLOOR, PT CLAYTON TRANSFERED TO ROOM 329.
--- NOTE | 2019-04-17 18:37 | NUR ---
PT TRANSFERRED FROM PCU VIA W/C. PT IS A/O X 4 AND PLEASANT AND COOPERATIVE WITH CARE. PT WAS TRANSFERRED TO BED WITH STAND BY ASSIST AND ORIENTED TO ROOM AND STAFF. CALL ELISHAI IN REACH.
--- NOTE | 2019-04-17 19:39 | NUR ---
ASSUMED CARE OF THE PATIENT. SHE IS RESTING COMFORTABLY IN BED. STATES SHE WOULD LIKE TO GO HOME TOMORROW. LUNG SOUNDS ARE CLEAR THROUGHOUT, RESP EVEN AND UNLABORED, HR IRREGULAR RHYTHEM HISTORY OF AFIB. BT X 4, BRUISING IN THE RIGHT GROIN AREA PURPLE IN COLOR, SWELLING AND TENDERNESS NOTED, DIFFERENT SHADES OF BRUISING NOTED TO THE RIGHT OF THE HIP AND BACK AREA WELL IN DIFFERENT STAGES OF HEALING. DENIES ANY NUMBNESS OR TINGLING OR OTHER PAIN OR DISCOMFORT. NO CHEST NOTED OR SOB. WILL CONTINUE TO MONITOR.
[2019-04-18 05:35] LABS: BASOPHILS ABSOLUTE AUTO 0.03 K/mm3 (0.00-0.23); BASOPHILS PERCENT AUTO 0 % (0-2); EOSINOPHILS ABSOLUTE AUTO 0.03 K/mm3 (0.00-0.68); EOSINOPHILS PERCENT AUTO 0 % (0-6); Hematocrit 31.2 % (33.0-51.0); IMMATURE GRAN ABSOLUTE AUTO 0.09 K/mm3 (0.00-0.10); IMMATURE GRAN PERCENT AUTO 1 % (0-1); LYMPHOCYTES PERCENT AUTO 3 % (21-46); MONOCYTES ABSOLUTE AUTO 1.08 K/mm3 (0.16-1.47); MONOCYTES PERCENT AUTO 9 % (4-13); Mean Corpuscular HGB 35.7 pg (26.0-34.0); Mean Corpuscular Volume 101 fL (80-100); Mean Platelet Volume 10.1 fL (9.1-12.4); NEUTROPHILS ABSOLUTE AUTO 10.71 K/mm3 (1.96-9.15); NEUTROPHILS PERCENT AUTO 87 % (41-73); Platelet Count 218 K/mm3 (150-400); RDW Coefficient Variation 17.1 % (11.7-14.2); RDW Standard Deviation 55.4 fL (35.1-46.3); Red Blood Cell Count 3.08 M/mm3 (3.80-5.20); White Blood Cell Count 12.34 K/mm3 (4.00-11.30)
[2019-04-18 05:37] LABS: Mean Corpuscular HGB Conc 35.3 g/dL (31.5-36.5)
--- NOTE | 2019-04-18 05:43 | NUR ---
SHIFT SUMMARY: PT HAD AN UNEVENTFUL NIGHT, SLEPT THROUGHOUT THE NIGHT OTHER THEN TO USE THE BATHROOM. VS HAVE BEEN AVERAGING IN THE 160'S FOR SBP, AND OFF AND ON HER PULSE WILL INCREASE ABOVE 100. SHE HAD DENIED ANY PAIN OR DISCOMFORT, CHEST PAIN, OR ANYOTHER CHANGES OR CONCERNS. SHE DID HAVE A VEIW SCORE OF 3 THIS AM, RECHECK OF VITALS DECREASED HER SCORE BACK TO 1. SHE IS STILL HOPING TO GO HOME TODAY. WILL REPORT TO DAY SHIFT RN.
[2019-04-18 05:55] LABS: Anion Gap 11 mmol/L (6-16); Blood Urea Nitrogen 51 mg/dL (8-24); Bun/Creatinine Ratio 22.8 (12.0-20.0); CO2, Blood 22 mmol/L (21-32); Calcium, Blood 8.9 mg/dL (8.5-10.1); Chloride, Blood 100 mmol/L (98-108); Creatinine, Blood 2.24 mg/dL (0.40-1.00); Glomerular Filtration Rate 22 (60-); Glucose, Blood 103 mg/dL (70-99); Phosphorus, Blood 2.7 mg/dL (2.5-4.9); Potassium, Blood 4.4 mmol/L (3.5-5.5); Sodium, Blood 133 mmol/L (136-145)
--- NOTE | 2019-04-18 17:07 | NUR ---
SHIFT SUMMARY: PT HAS BEEN A/O X 4 THIS SHIFT WITH C/O LOW BACL PAIN X 1 AND REPORTED THAT PAIN MED WAS EFFECTIVE. B/P WAS ELEVATED THIS AM AND ORAL MEDS WERE GIVEN ORDERED. B/P WAS RE-CHECKED AND STILL ELEVATED AND PRN HYDRALAZINE WAS GIVEN AND EFFECTIVE, PT DENIED ANY HEADACHE OR DIZZINESS AND STATED SHE HAS ONGOING ISSUES WITH HIGH BLOOD PRESSURE. NIECE CAME TO VISIT PT AND STATED SHE WAS GOING TO REACH OUT TO CASE MANAGEMENT TO DISCUSS DC PLANS WITH THEM. PT WAS ASSISTED TO TAKE A SHOWER TODAY AND SAT UP IN A CHAIR THIS AFTERNOON. PT IS STEBB[place] BUT IS ABLE TO MAKE HER NEEDS KNOWN AND USES CALL LIGHT WHEN NEEDED.
--- NOTE | 2019-04-19 05:36 | NUR ---
HOME HEALTH CLINICAL SUPERVISOR SUMMARY PT GIVEN PRN HYDRALAZINE JUST BEFORE START OF SHIFT BY DAY SHIFT RN FOR HTN. NEW ORDERS FOR COREG ADDED BY MD. PT SBP NOW IN 130'S THROUGH THE NIGHT. PT AAOX3 AND CALLS APPROPRIATELY. 1 ASSIST TO THE BSC. GIVEN TRAMADOL X1 AT BEDTIME FOR CHRONIC PAINS. NO ACUTE CHANGES IN R HIP/GROIN AREA HEMATOMA. VSS, WILL CONTINUE TO MONITOR.
[2019-04-19 05:46] LABS: BASOPHILS ABSOLUTE AUTO 0.02 K/mm3 (0.00-0.23); BASOPHILS PERCENT AUTO 0 % (0-2); EOSINOPHILS ABSOLUTE AUTO 0.03 K/mm3 (0.00-0.68); EOSINOPHILS PERCENT AUTO 0 % (0-6); Hematocrit 28.6 % (33.0-51.0); Hemoglobin 9.9 g/dL (11.5-16.0); IMMATURE GRAN PERCENT AUTO 1 % (0-1); LYMPHOCYTES ABSOLUTE AUTO 0.67 K/mm3 (0.84-5.20); LYMPHOCYTES PERCENT AUTO 4 % (21-46); MONOCYTES ABSOLUTE AUTO 1.25 K/mm3 (0.16-1.47); MONOCYTES PERCENT AUTO 7 % (4-13); Mean Corpuscular HGB 35.5 pg (26.0-34.0); Mean Corpuscular HGB Conc 34.6 g/dL (31.5-36.5); Mean Corpuscular Volume 103 fL (80-100); Mean Platelet Volume 9.9 fL (9.1-12.4); NEUTROPHILS ABSOLUTE AUTO 15.72 K/mm3 (1.96-9.15); NEUTROPHILS PERCENT AUTO 88 % (41-73); Platelet Count 196 K/mm3 (150-400); RDW Coefficient Variation 16.2 % (11.7-14.2); RDW Standard Deviation 57.2 fL (35.1-46.3); Red Blood Cell Count 2.79 M/mm3 (3.80-5.20); White Blood Cell Count 17.79 K/mm3 (4.00-11.30)
[2019-04-19 05:47] LABS: Albumin, Blood 2.7 g/dL (3.4-5.0); Anion Gap 10 mmol/L (6-16); Blood Urea Nitrogen 58 mg/dL (8-24); Bun/Creatinine Ratio 23.4 (12.0-20.0); CO2, Blood 21 mmol/L (21-32); Calcium, Blood 8.4 mg/dL (8.5-10.1); Chloride, Blood 100 mmol/L (98-108); Creatinine, Blood 2.48 mg/dL (0.40-1.00); Glomerular Filtration Rate 19 (60-); Glucose, Blood 90 mg/dL (70-99); Phosphorus, Blood 2.9 mg/dL (2.5-4.9); Sodium, Blood 131 mmol/L (136-145)
[2019-04-19 12:47] LABS: Source, Urine Clean Catch
[2019-04-19 12:55] LABS: Bilirubin, Urine Neg (Neg); Blood, Urine Neg (Neg); Glucose Qualitative, Urine Neg (Neg); Ketones, Urine Neg (Neg); Leukocyte Esterase, Urine 1+ (Neg); Nitrite, Urine Neg (Neg); Protein, Urine 2+ (Neg); Urobilinogen, Urine NORM (Normal)
[2019-04-19 13:06] LABS: Appearance, Urine Clear (Clear); Color, Urine Yellow (P-Yellow)
[2019-04-19 13:08] LABS: Amorphous Light (0-Heavy); Bacteria Mod /hpf; Granular Casts 0-2 /lpf (0); Hyaline Casts 0-2 /lpf (0-2); Mucus Light (0-Heavy); Red Blood Cells, Urine 0-2 /hpf (0-2); Squamous Epithelial Cells Rare /hpf (Few); White Blood Cells, Urine 0-2 /hpf (0-5)
[2019-04-19 16:58] LABS: BASOPHILS ABSOLUTE AUTO 0.01 K/mm3 (0.00-0.23); BASOPHILS PERCENT AUTO 0 % (0-2); EOSINOPHILS ABSOLUTE AUTO 0.05 K/mm3 (0.00-0.68); EOSINOPHILS PERCENT AUTO 0 % (0-6); Hematocrit 28.5 % (33.0-51.0); Hemoglobin 9.7 g/dL (11.5-16.0); IMMATURE GRAN PERCENT AUTO 1 % (0-1); LYMPHOCYTES ABSOLUTE AUTO 0.52 K/mm3 (0.84-5.20); LYMPHOCYTES PERCENT AUTO 4 % (21-46); MONOCYTES PERCENT AUTO 7 % (4-13); Mean Platelet Volume 10.1 fL (9.1-12.4); NEUTROPHILS ABSOLUTE AUTO 13.08 K/mm3 (1.96-9.15); NEUTROPHILS PERCENT AUTO 89 % (41-73); Platelet Count 208 K/mm3 (150-400); RDW Coefficient Variation 16.2 % (11.7-14.2); RDW Standard Deviation 57.2 fL (35.1-46.3); Red Blood Cell Count 2.77 M/mm3 (3.80-5.20); White Blood Cell Count 14.76 K/mm3 (4.00-11.30)
[2019-04-19 17:00] LABS: Mean Corpuscular Volume 103 fL (80-100)
--- NOTE | 2019-04-19 18:07 | NUR ---
PT VERY SYCUAN, PLEASANT AND COOPERATIVE THIS MORNING, PT REPORTED RT SHOULDER PAIN AND WAS MEDICATED PER EMAR AT 1118. PT REPORTS MEDICATION WAS EFFECTIVE. NO FURTHER REPORTS PAIN RECEIVED TODAY. DR MEEKS CONSULTED AND INTO SEE PT. PORTABLE CXR AND US OB ABD/PELVIS COMPLETED TODAY. NO ACUTE CHANGES NOTED THIS SHIFT, WILL CONTINUE TO MONITOR AND REPORT TO ONCOMING RN
--- NOTE | 2019-04-20 05:11 | NUR ---
SHIFT SUMMARY PT ALERT AND ORIENTED, DENIES PAIN. HAS SLEPT WELL, UP TO BR X2 THIS SHIFT. NO ACUTE CHANGES OR EVENTS NOTED, WILL CONTINUE TO MONITOR.
[2019-04-20 06:02] LABS: Albumin, Blood 2.5 g/dL (3.4-5.0); Albumin/Globulin Ratio 0.7 (0.8-1.8); Bilirubin, Total 1.5 mg/dL (0.1-1.0); Bun/Creatinine Ratio 24.7 (12.0-20.0); Calcium, Blood 8.5 mg/dL (8.5-10.1); Creatinine, Blood 2.88 mg/dL (0.40-1.00); Globulin, Blood 3.6 g/dL (2.2-4.0); Potassium, Blood 4.9 mmol/L (3.5-5.5); Total Protein, Blood 6.1 g/dL (6.4-8.2)
[2019-04-20 06:13] LABS: BASOPHILS ABSOLUTE AUTO 0.02 K/mm3 (0.00-0.23); BASOPHILS PERCENT AUTO 0 % (0-2); EOSINOPHILS PERCENT AUTO 0 % (0-6); Hematocrit 28.6 % (33.0-51.0); Hemoglobin 9.6 g/dL (11.5-16.0); IMMATURE GRAN ABSOLUTE AUTO 0.11 K/mm3 (0.00-0.10); IMMATURE GRAN PERCENT AUTO 1 % (0-1); LYMPHOCYTES ABSOLUTE AUTO 0.24 K/mm3 (0.84-5.20); LYMPHOCYTES PERCENT AUTO 2 % (21-46); MONOCYTES ABSOLUTE AUTO 0.09 K/mm3 (0.16-1.47); MONOCYTES PERCENT AUTO 1 % (4-13); Mean Corpuscular HGB 33.8 pg (26.0-34.0); Mean Corpuscular HGB Conc 33.6 g/dL (31.5-36.5); Mean Corpuscular Volume 101 fL (80-100); Mean Platelet Volume 10.2 fL (9.1-12.4); NEUTROPHILS ABSOLUTE AUTO 12.96 K/mm3 (1.96-9.15); NEUTROPHILS PERCENT AUTO 97 % (41-73); Platelet Count 210 K/mm3 (150-400); RDW Coefficient Variation 16.1 % (11.7-14.2); RDW Standard Deviation 55.2 fL (35.1-46.3); Red Blood Cell Count 2.84 M/mm3 (3.80-5.20); White Blood Cell Count 13.42 K/mm3 (4.00-11.30)
--- NOTE | 2019-04-20 16:10 | NUR ---
SUMMARY PT IS A/O X3, [place], PLEASANT/COOPERATIVE. SHE WAS UP WITH PHY THER TODAY, GAIT SOMEWHAT UNSTEADY, 1 ASSIST W FWW/GB. SHE STATE NO PAIN @ REST. STATE STATE HEMATOMA SITE GROIN/PUBIC AREA "ITCHY" @ X'S, TENDER. SHE HAS HAD SMALL URINE VOIDS TODAY, PVR SHOW NO RETENTION @ THIS TIME. GFR 16, DR MEEKS MANAGING RENAL FX. VSS.
--- NOTE | 2019-04-21 05:11 | NUR ---
SHIFT SUMMARY: PT IS ALERT AND ORIENTED. PT IS CALM AND COOPERATIVE WITH CARE. PT CALLS APPROPRIATELY. PT IS A ONE PERSON ASSIST TO THE BSC. PT DENIES PAIN, NAUSEA, VOMITING, AND SOB. PT SLEPT MUCH OF THE NIGHT WHEN NOT DISTURBED. NO ACUTE CHANGES OR COMPLICATIONS THIS SHIFT. BED IN LOW POSITION, CALL LIGHT WITHIN REACH. WILL REPORT TO DAY NURSE.
[2019-04-21 06:18] LABS: Alanine Aminotransfer (ALT/SGP 23 U/L (12-78); Albumin, Blood 2.6 g/dL (3.4-5.0); Albumin/Globulin Ratio 0.7 (0.8-1.8); Alk Phos 82 U/L (50-136); Anion Gap 10 mmol/L (6-16); Aspartate Aminotrans (AST/SGOT 21 U/L (12-37); Bilirubin, Total 1.1 mg/dL (0.1-1.0); Blood Urea Nitrogen 82 mg/dL (8-24); Bun/Creatinine Ratio 29.2 (12.0-20.0); CO2, Blood 20 mmol/L (21-32); Calcium, Blood 8.5 mg/dL (8.5-10.1); Chloride, Blood 100 mmol/L (98-108); Creatinine, Blood 2.81 mg/dL (0.40-1.00); Globulin, Blood 3.8 g/dL (2.2-4.0); Glomerular Filtration Rate 17 (60-); Glucose, Blood 124 mg/dL (70-99); Phosphorus, Blood 3.8 mg/dL (2.5-4.9); Potassium, Blood 4.4 mmol/L (3.5-5.5); Sodium, Blood 130 mmol/L (136-145); Total Protein, Blood 6.4 g/dL (6.4-8.2)
[2019-04-21 06:35] LABS: BASOPHILS ABSOLUTE AUTO 0.01 K/mm3 (0.00-0.23); BASOPHILS PERCENT AUTO 0 % (0-2); EOSINOPHILS PERCENT AUTO 0 % (0-6); Hematocrit 29.6 % (33.0-51.0); Hemoglobin 10.1 g/dL (11.5-16.0); IMMATURE GRAN PERCENT AUTO 1 % (0-1); LYMPHOCYTES ABSOLUTE AUTO 0.35 K/mm3 (0.84-5.20); LYMPHOCYTES PERCENT AUTO 3 % (21-46); MONOCYTES ABSOLUTE AUTO 0.31 K/mm3 (0.16-1.47); MONOCYTES PERCENT AUTO 2 % (4-13); Mean Corpuscular HGB 34.6 pg (26.0-34.0); Mean Corpuscular Volume 101 fL (80-100); NEUTROPHILS ABSOLUTE AUTO 11.99 K/mm3 (1.96-9.15); NEUTROPHILS PERCENT AUTO 94 % (41-73); Platelet Count 270 K/mm3 (150-400); RDW Coefficient Variation 15.6 % (11.7-14.2); RDW Standard Deviation 55.1 fL (35.1-46.3); Red Blood Cell Count 2.92 M/mm3 (3.80-5.20); White Blood Cell Count 12.76 K/mm3 (4.00-11.30)
[2019-04-21 06:42] LABS: Mean Corpuscular HGB Conc 34.1 g/dL (31.5-36.5)
--- NOTE | 2019-04-21 16:02 | NUR ---
SUMMARY PT STATE CONTINUING TENDERNESS & PAIN WITH PALPATION R GROIN & FLANK HEMATOMA. PRN ULTRAM GIVEN THIS AM, PT STATE EFFECTIVE RELIEF T/O DAY. SITE CONTINUES TO BE EXTENSIVELY ECCHYMOTIC HOWEVER DOES NOT APPEAR INCREASING IN SIZE. HR IRREG HX AFIB, SHE IS NO T ON ASA @ THIS TIME USING SCD FOR DVT PREVENTION. SHE IS A/O X3 HOWEVER [place], PLEASANT AFFECT. UP WITH ASSIST TO BSC VOIDING & HAD BM TODAY. FAMILY IN THIS AFTERNOON, UPDATED & QUESTIONS ANSWERED TO SATISFACTION. VSS.
--- NOTE | 2019-04-22 04:04 | NUR ---
SHIFT SUMMARY- NO ACUTE CHANGES OVERNIGHT. PT. SLEPT WELL T/O SHIFT. PAIN MEDICATION GIVEN AT THE BEGINNING OF SHIFT PER EMAR. TOLERATED WELL. DENIED ANY OTHER NEEDS. CALL LIGHT WITHIN REACH AND SIDE RAILS UP X2. WILL CONT TO MONITOR.
[2019-04-22 07:59] LABS: Albumin, Blood 2.7 g/dL (3.4-5.0); Anion Gap 10 mmol/L (6-16); Blood Urea Nitrogen 94 mg/dL (8-24); Bun/Creatinine Ratio 35.1 (12.0-20.0); CO2, Blood 20 mmol/L (21-32); Calcium, Blood 8.7 mg/dL (8.5-10.1); Chloride, Blood 100 mmol/L (98-108); Creatinine, Blood 2.68 mg/dL (0.40-1.00); Glomerular Filtration Rate 18 (60-); Glucose, Blood 98 mg/dL (70-99); Phosphorus, Blood 4.3 mg/dL (2.5-4.9); Potassium, Blood 4.7 mmol/L (3.5-5.5); Sodium, Blood 130 mmol/L (136-145)
[2019-04-22] MEDS ORDERED: CARV6.25 PO (11:04)
[2019-04-22] MEDS ORDERED: Norvasc2.5 MG PO (11:06)
[2019-04-22] MEDS ORDERED: DELTASONE20 MG PO (11:08)
--- NOTE | 2019-04-22 12:41 | NUR ---
D/C INSTRUCTIONS PROVIDED AND EXPLAINED TO PT AND CAREGIVER. MEDS FAXED TO [facility]. IV REMOVED. PT D/C VIA WHEELCHAIR WITH ESCORT AND CAREGIVER AT 1240.
== END 2019-04-22 12:37 | disposition home health service (06) | DRG 604 ==
LOC: ER 09:54 → MEDS 11:05 → PCU 11:05 → MEDS 04-17 17:55 → ENPENDDIS 04-22 10:58 → MEDS 04-22 12:37
PROVIDERS: Family Medicine; Internal Medicine; Internal Medicine Nephrology; ADMIT Family Medicine
PROC: B41FZZZ Fluoroscopy of Right Lower Extremity Arteries (ICD-10-PCS; principal; 2019-04-12)
PROC: 30233N1 Transfusion of Nonautologous Red Blood Cells into Peripheral Vein, Percutaneous Approach (ICD-10-PCS; 2019-04-14)
DX: S30.1XXA Contusion of abdominal wall, initial encounter (principal); I50.23 Acute on chronic systolic (congestive) heart failure; I13.0 Hypertensive heart and chronic kidney disease with heart failure and stage 1 through stage 4 chronic kidney disease, or unspecified chronic kidney disease; N18.4 Chronic kidney disease, stage 4 (severe); N17.9 Acute kidney failure, unspecified; E87.1 Hypo-osmolality and hyponatremia; D62 Acute posthemorrhagic anemia; M10.9 Gout, unspecified; D63.1 Anemia in chronic kidney disease; I48.2 Chronic atrial fibrillation; Z79.01 Long term (current) use of anticoagulants; D69.6 Thrombocytopenia, unspecified; I73.9 Peripheral vascular disease, unspecified; Z86.73 Personal history of transient ischemic attack (TIA), and cerebral infarction without residual deficits; Z79.82 Long term (current) use of aspirin
CPT/HCPCS: 36140; 36415; 36430; 37229; 71045; 71046; 72192; 75710; 76857; 76937; 80048; 80053; 80069; 81001; 82530; 82533; 82550; 83735; 83880; 84100; 84443; 84550; 85014; 85018; 85025; 85347; 85610; 86850; 86900; 86901; 86923; 87086; 94760; 96374; 97116; 97162; 97165; 97530; 97535; 99152; 99153; 99285-25; C1724; C1725; C1769; C1887; C1894; J0360; J1644; J1940; J2250; J2720; J3010; J7030; J7512; P9016; Q9967

== ENCOUNTER 2019-04-27 10:13 | Emergency (ER) | payer MEDICARE, BC ==
[~2019-04-27] VITALS: Ht 144.8 cm; Wt 46.7 kg
[~2019-04-27 10:13] MED LIST changes: +B Complex #11 EACH PO; +DELTASONE20 MG PO; +Norvasc2.5 MG PO
[2019-04-27 11:37] LABS: Bun/Creatinine Ratio 43.8 (12.0-20.0); Calcium, Blood 8.5 mg/dL (8.5-10.1); Creatinine, Blood 1.85 mg/dL (0.40-1.00); Potassium, Blood 4.8 mmol/L (3.5-5.5)
[2019-04-27 12:24] LABS: BASOPHILS ABSOLUTE AUTO 0.01 K/mm3 (0.00-0.23); BASOPHILS PERCENT AUTO 0 % (0-2); EOSINOPHILS ABSOLUTE AUTO 0.02 K/mm3 (0.00-0.68); EOSINOPHILS PERCENT AUTO 0 % (0-6); Hematocrit 36.6 % (33.0-51.0); Hemoglobin 12.6 g/dL (11.5-16.0); IMMATURE GRAN ABSOLUTE AUTO 0.07 K/mm3 (0.00-0.10); IMMATURE GRAN PERCENT AUTO 1 % (0-1); LYMPHOCYTES ABSOLUTE AUTO 0.26 K/mm3 (0.84-5.20); LYMPHOCYTES PERCENT AUTO 2 % (21-46); MONOCYTES PERCENT AUTO 4 % (4-13); Mean Corpuscular HGB 34.6 pg (26.0-34.0); Mean Corpuscular HGB Conc 34.4 g/dL (31.5-36.5); Mean Corpuscular Volume 101 fL (80-100); Mean Platelet Volume 9.9 fL (9.1-12.4); NEUTROPHILS ABSOLUTE AUTO 11.71 K/mm3 (1.96-9.15); NEUTROPHILS PERCENT AUTO 93 % (41-73); Platelet Count 317 K/mm3 (150-400); RDW Coefficient Variation 16.4 % (11.7-14.2); Red Blood Cell Count 3.64 M/mm3 (3.80-5.20); White Blood Cell Count 12.57 K/mm3 (4.00-11.30)
[2019-04-27 12:25] LABS: International Normalized Ratio 1.05; Prothrombin Time Results 11.1 Sec (9.7-11.5)
[2019-04-27] MEDS ORDERED: Tylenol W/Code120 ML PO (12:46)
== END 2019-04-27 13:10 | disposition home or self-care (01) ==
LOC: ER 10:13
PROVIDERS: Emergency Medicine
DX: J06.9 Acute upper respiratory infection, unspecified (principal); I13.0 Hypertensive heart and chronic kidney disease with heart failure and stage 1 through stage 4 chronic kidney disease, or unspecified chronic kidney disease; I50.9 Heart failure, unspecified; N18.3 Chronic kidney disease, stage 3 (moderate); D63.1 Anemia in chronic kidney disease; I48.91 Unspecified atrial fibrillation; Z88.1 Allergy status to other antibiotic agents; Z88.8 Allergy status to other drugs, medicaments and biological substances; Z79.899 Other long term (current) drug therapy; Z79.82 Long term (current) use of aspirin; Z79.52 Long term (current) use of systemic steroids; Z86.73 Personal history of transient ischemic attack (TIA), and cerebral infarction without residual deficits
CPT/HCPCS: 36415; 71045; 80048; 85025; 85610; 99284-25

== ENCOUNTER → 2019-05-22 | Outpatient (CLI) | payer MEDICARE, BC ==
[~2019-05-22] MED LIST changes: +Tylenol W/Code120 ML PO
== END | disposition home or self-care (01) ==
LOC: LAB 15:43 → LAB SHORT 15:43 → EDSTATUS 05-14 14:45 → LAB FUT 05-14 14:45
DX: R19.7 Diarrhea, unspecified (principal)
CPT/HCPCS: 87493

== ENCOUNTER → 2019-06-21 | Outpatient (CLI) | payer MEDICARE, BC ==
[2019-06-24 10:36] LABS: Adenovirus F 40/41 Not Detected (NOT DETECT); Astrovirus Not Detected (NOT DETECT); Campylobacter Sp Not Detected (NOT DETECT); Cryptosporidium Not Detected (NOT DETECT); Cyclospora Cayetanensis Not Detected (NOT DETECT); E. Coli O157 Not Detected (NOT DETECT); Entamoeba Histolytica Not Detected (NOT DETECT); Enteroaggregative E. coli-EAEC Not Detected (NOT DETECT); Enteropathogenic E. coli-EPEC Not Detected (NOT DETECT); Enterotoxigenic E. coli-ETEC Not Detected (NOT DETECT); Giardia Lamblia Not Detected (NOT DETECT); Norovirus GI/GII Not Detected (NOT DETECT); Plesiomonas Shigelloides Not Detected (NOT DETECT); Rotavirus A Not Detected (NOT DETECT); Salmonella Sp Not Detected (NOT DETECT); Sapovirus Not Detected (NOT DETECT); Shiga Toxin-prod E. coli-STEC Not Detected (NOT DETECT); Shigella/Enteroin E. coli-EIEC Not Detected (NOT DETECT); Vibrio Cholerae Not Detected (NOT DETECT); Vibrio Sp Not Detected (NOT DETECT); Yersinia Enterocolitica Not Detected (NOT DETECT)
== END | disposition home or self-care (01) ==
LOC: LAB SHORT 04:10 → LAB 04:10 → LAB FUT 06-21 11:50
PROVIDERS: Family Medicine
DX: R19.7 Diarrhea, unspecified (principal)
CPT/HCPCS: 0097U